=== PATIENT | female | born 1990 | race Caucasian/White ===

== ENCOUNTER 2017-01-22 09:33 | Inpatient (IN) | payer OTHER ==
[2017-01-21 11:38] VITALS: BMI 39.9
[2017-01-22] MEDS ORDERED: BUPIVACAINE HCL/PF 0.5% (5MG/ML) 10 ML VIAL ONE (15:30)
--- NOTE | 2017-01-22 16:43 | HP ---
History & Physical Update - History History: No Change - Physical Physical: No Change - Assessment Assessment: No Change - Plan Plan: No Change Currently as noted:: Morbid obesity- For robotic vertical sleeve gastrectomy, possible liver Bx
[2017-01-22] MEDS ORDERED: fentaNYL CITRATE 250 MCG/5 ML VIAL ONE (18:34)
[2017-01-22] MEDS ORDERED: PROPOFOL 20 ML ONE (18:34)
[2017-01-22] MEDS ORDERED: ROCURONIUM BROMIDE 50 MG/5 ML VIAL ONE (18:34)
[2017-01-22] MEDS ORDERED: MIDAZOLAM HCL 2 MG/2 ML SINGLE DOSE VIAL ONE (18:34)
[2017-01-22] MEDS ORDERED: ceFAZolin SODIUM 1 GM VIAL IVPB ONE (19:00)
[2017-01-22] MEDS ORDERED: ceFAZolin SODIUM 1 GM VIAL ONE (19:09)
[2017-01-22] MEDS ORDERED: DEXAMETHASONE SOD PHOSPHATE 4 MG/1 ML VIAL ONE (19:09)
[2017-01-22] MEDS ORDERED: SODIUM CHLORIDE 0.9% P/F 10 ML VIAL IJ ONE (19:09)
[2017-01-22] MEDS ORDERED: NEOSTIGMINE METHYLSULFATE 0.5 MG/ML - 10 ML MDV ONE (19:58)
[2017-01-22] MEDS ORDERED: GLYCOPYRROLATE 0.2 MG/1 ML VIAL ONE (19:58)
[2017-01-22] MEDS ORDERED: BUPIVACAINE HCL/PF 0.5% (5MG/ML) 10 ML VIAL NR ONE (20:39)
--- NOTE | 2017-01-22 20:54 | OP ---
Operative Note - Note: Operative Date: 01/22/17 Pre-Operative Diagnosis: Morbid obesity Operation: Robotic vertical sleeve gastrectomy. Robotic wedge liver biopsy. Upper endoscopy/EGD Post-Operative Diagnosis: Other (Morbid obesity, hepatomegaly) Surgeon: Mike Plaza Rn Oncology Research: Andrea Godoy Anesthesia: General Specimens Removed: Greater curvature of stomach. Wedge liver biopsy left lobe Estimated Blood Loss (mls): 30 Drains & Tubes with Location: 36 Fr Bougie Operative Report Dictated: Yes
[2017-01-22] MEDS ORDERED: HYDROmorphone HCL CARPU-JECT 1 MG/1 ML DISP.SYRIN IVPB PRN (20:55)
[2017-01-22] MEDS ORDERED: SODIUM CHLORIDE 1,000 ML IV SCH (21:00)
[2017-01-22] MEDS ORDERED: ONDANSETRON 4 MG/2 ML VIAL IVPUSH PRN (21:07)
[2017-01-22] MEDS ORDERED: PROMETHAZINE HCL 25 MG/1 ML VIAL IVPUSH PRN (21:07)
[2017-01-22] MEDS ORDERED: LACTATED RINGERS SOLUTION 1,000 ML IV SCH (21:15)
[2017-01-22] MEDS ORDERED: METOCLOPRAMIDE HCL INJECTION 10 MG/2 ML VIAL ONE (21:18)
[2017-01-22] MEDS ORDERED: ACETAMINOPHEN INJECTION 100 ML IVPB ONE (21:18)
[2017-01-22] MEDS ORDERED: HYDROmorphone HCL CARPU-JECT 2 MG/1 ML DISP.SYRIN ONE (21:18)
[2017-01-22] MEDS ORDERED: PROMETHAZINE HCL 25 MG/1 ML VIAL ONE ×2 (21:18→22:00)
[2017-01-22] MEDS: METOCLOPRAMIDE HCL INJECTION 10 MG/2 ML VIAL IVPUSH SCH (21:25)
[2017-01-22 21:29] LABS: MCHC 32.5 g/dl (32.0-36.0); MEAN CELL VOLUME 86.2 fl (80-96); RDW 13.6 % (11.6-15.6); WHITE BLOOD COUNT 20.3 K/mm3 (4.0-10.0)
[2017-01-22] MEDS: ACETAMINOPHEN 1000 MG/100 ML VIAL (NON FORMULARY) IVPB SCH (21:45)
[2017-01-22] MEDS ORDERED: FAMOTIDINE 20 MG/50 ML IVPB 50 ML IVPB SCH (22:00)
[2017-01-22] MEDS ORDERED: FAMOTIDINE/PF 20 MG/12 ML PUSH IVPUSH SCH (22:00)
[2017-01-22 22:02] LABS: ALBUMIN 3.6 g/dl (3.4-5.0); ALK PHOS 77 U/L (45-117); ANION GAP 9 (8-16); BILIRUBIN,TOTAL 0.7 mg/dL (0.2-1.0); CALCIUM 8.5 mg/dL (8.5-10.1); CO2 23 mmol/L (21-32); CREATININE 0.9 mg/dL (0.55-1.02); GLUCOSE,RANDOM 117 mg/dL (74-106); SGPT/ALT 48 U/L (12-78); TOT PROT 7.3 g/dl (6.4-8.2)
[2017-01-22 22:09] LABS: SGOT/AST 42 U/L (15-37)
[2017-01-22 22:27] LABS: PLATELET COMMENTS SLT PLT CLUMPING
[2017-01-22] MEDS: ONDANSETRON 4 MG/2 ML VIAL IVPUSH SCH (23:20)
[2017-01-22] MEDS: ENOXAPARIN NA (PORCINE) 40 MG/0.4 ML DISP.SYRIN SQ SCH (23:21)
[2017-01-22] MEDS: FAMOTIDINE IV 20 MG/12 ML VIAL IVPUSH SCH (23:34)
[2017-01-23] MEDS: ONDANSETRON 4 MG/2 ML VIAL IVPUSH SCH ×6 (02:33→21:22)
[2017-01-23] MEDS: HYDROmorphone HCL CARPU-JECT 2 MG/1 ML DISP.SYRIN IVPB PRN ×2 (02:46→12:58)
[2017-01-23] MEDS: METOCLOPRAMIDE HCL INJECTION 10 MG/2 ML VIAL IVPUSH SCH ×4 (04:14→21:25)
[2017-01-23] MEDS: ACETAMINOPHEN 1000 MG/100 ML VIAL (NON FORMULARY) IVPB SCH ×3 (04:15→15:17)
[2017-01-23 07:53] LABS: MEAN CELL VOLUME 84.9 fl (80-96); MEAN PLT VOLUME 9.5 fl (7.5-11.1); PLATELET COUNT 192 K/MM3 (134-434); RDW 13.4 % (11.6-15.6); WHITE BLOOD COUNT 9.1 K/mm3 (4.0-10.0)
[2017-01-23 08:23] LABS: ALBUMIN 3.4 g/dl (3.4-5.0); ANION GAP 12 (8-16); BILIRUBIN,TOTAL 0.9 mg/dL (0.2-1.0); CALCIUM 8.2 mg/dL (8.5-10.1); CO2 23 mmol/L (21-32); CREATININE 0.7 mg/dL (0.55-1.02); GLUCOSE,RANDOM 94 mg/dL (74-106); SGOT/AST 49 U/L (15-37); SGPT/ALT 55 U/L (12-78); TOT PROT 6.8 g/dl (6.4-8.2)
[2017-01-23 08:24] LABS: ALK PHOS 67 U/L (45-117)
[2017-01-23] MEDS ORDERED: PT OWN MED DRAWER 7, Y5N ONE ×2 (09:28→10:31)
[2017-01-23] MEDS: ENOXAPARIN NA (PORCINE) 40 MG/0.4 ML DISP.SYRIN SQ SCH ×2 (09:41→21:26)
[2017-01-23] MEDS: FAMOTIDINE IV 20 MG/12 ML VIAL IVPUSH SCH ×2 (09:50→22:25)
[2017-01-23] MEDS: LEVOTHYROXINE SODIUM 100 MCG VIAL IM SCH (09:55)
--- NOTE | 2017-01-23 10:40 | PN ---
Progress Note (short form) - Note Progress Note: POD #1 - s/p robotic gastric sleeve under GA. VSS. Pt. doing well, resting comfortably in bed. No complaints. No apparent anesthetic complications noted. Continue current care.
[2017-01-23] MEDS: SODIUM CHLORIDE 1,000 ML IV SCH (13:00)
[2017-01-23] MEDS ORDERED: oxyCODONE HCL 5 MG TABLET PO PRN (13:14)
[2017-01-23] MEDS ORDERED: ACETAMINOPHEN 325 MG TABLET (FP) PO PRN (13:14)
--- NOTE | 2017-01-23 18:30 | PN ---
Progress Note (short form) - Note Progress Note: POD 1 Pain controlled No nausea Vital Signs Period Temp Pulse Resp BP Sys/Cates Pulse Ox Last 24 Hr 98.2 F-99.3 F 62-114 20-26 113-147/64-83 96-99 Abd soft CBC, BMP 01/23/17 05:37 01/23/17 05:37 UGI- no leak/obstruction Clears Ambulate
--- NOTE | 2017-01-23 18:31 | DS ---
Physical Examination Vital Signs: Vital Signs Temperature 99.0 F 01/23/17 14:00 Pulse Rate 62 01/23/17 14:00 Respiratory Rate 20 01/23/17 14:00 Blood Pressure 134/75 01/23/17 14:00 O2 Sat by Pulse Oximetry (%) 96 01/23/17 10:00 Constitutional: Yes: Calm HENT: Yes: WNL Neck: Yes: Supple Cardiovascular: Yes: Regular Rate and Rhythm Respiratory: Yes: CTA Bilaterally Gastrointestinal: Yes: Soft Extremities: Yes: WNL Neurological: Yes: Alert, Oriented Labs: CBC, BMP 01/23/17 05:37 01/23/17 05:37 Discharge Summary Reason For Visit: MORBID (SEVERE) OBESITY DUE TO EXCESS CALORIES Current Active Problems Hepatomegaly (Acute) Morbid obesity due to excess calories (Acute) Procedures: Principal: Robotic sleeve gastrectomy, wedge liver biopsy, EGD Condition: Stable - Instructions Diet, Activity, Other Instructions: [address] [place] [address] Mike Plaza M.D. [address] [place] [address], [address] [facility] [place] [address] Robotic, Bariatric and General Surgery Postoperative Instructions for Bariatric Surgery Activity: Resume normal everyday activity as tolerated. You may walk and climb stairs without any limitation. We encourage you to walk as often as you can Do not lift anything more than 10 pounds for 8 weeks. At that time, you can return to full activity, including the gym, without limitation. Do not drive a motor vehicle while taking prescribes narcotic pain medication. Wound Care: If you have a bandage in place, leave it on for 3 days. At that time you may remove the outer bandage. If there are strips of tape on the skin after removing the outer bandage, leave them in place. They will fall off by themselves. Do not remove them. If there is clear glue on the skin after removing the outer bandage, leave it in place. Do not pick at it or peel it off. You may shower after taking the outer bandage off, 3 days after your surgery. If incisions become red, warm or open, please call the office. Diet: Continue a sugar-free, non-carbonated Clear liquid diet three times a day for the first week-Stage I diet. In addition, you should drink 8 ounces of water every hour. When drinking, sips should be slow and steady, not large and quick. After the first week, call the office to be advanced to the next dietary stage. Do not advance stages until instructed. Your diet will be advanced over the phone each week. Medications/Pain Management: You may resume previous medications unless told otherwise. The pills may be swallowed whole or broken if scored. You may take the prescribed narcotic pain medication as needed. If the narcotic medication is not needed for pain control, you may take Tylenol. Avoid all other pain medications including Advil, Ibuprofen, Motrin, Aspirin, Naprosyn, Aleve, Celebrex. You will receive Pepcid. Please take this twice a day as prescribed. Dizziness,Headaches/Gas Pain: Make sure you are getting enough fluids daily. Patients on diuretics or water pills may need medication adjusted. Some fluids such as broth or Gatorade may help. Gas pains are common in the first few weeks after surgery. At times they can be worse than surgical pain. Walking can help. You can also use Mylanta, Maalox, or Gas-X. Vomiting/Nausea: This may occur if you eat too fast, don't chew, or eat too much. Go back to fluids. If the vomiting or nausea persists, call the office. Constipation/Diarrhea: You may experience a change in bowel habits. Many things affect this, including a decrease in food intake, not enough fluid and taking pain medication. Some people experience diarrhea after the barium swallow in x-ray. If either persist, call the office. Follow up: Call the office at [phone] for an appointment 2 weeks after your surgical procedure. Disposition: HOME - Home Medications Comprehensive Discharge Medication List: Ambulatory Orders Ergocalciferol (Vitamin D2) [Vitamin D2] 50,000 unit PO WEEKLY 01/21/17 Levothyroxine [Synthroid -] 150 mcg PO UTDICT 01/21/17 Levothyroxine [Synthroid -] 175 mcg PO UTDICT 01/21/17 Famotidine [Pepcid] 20 mg PO BID #60 tablet 01/22/17 Oxycodone HCl/Acetaminophen [Percocet 5-325 mg Tablet] 1 - 2 tab PO Q6H #28 tab MDD 4 01/22/17
[2017-01-24] MEDS: ONDANSETRON 4 MG/2 ML VIAL IVPUSH SCH ×4 (01:12→15:09)
[2017-01-24] MEDS: METOCLOPRAMIDE HCL INJECTION 10 MG/2 ML VIAL IVPUSH SCH ×3 (02:23→15:09)
[2017-01-24] MEDS ORDERED: PT OWN MED DRAWER 7, Y5N ONE (08:53)
[2017-01-24] MEDS: ENOXAPARIN NA (PORCINE) 40 MG/0.4 ML DISP.SYRIN SQ SCH (09:28)
[2017-01-24] MEDS: LEVOTHYROXINE SODIUM 100 MCG VIAL IM SCH ×2 (09:28→10:42)
--- NOTE | 2017-01-24 10:35 | SPEC ---
DATE OF OPERATION: 01/22/2017 SURGEON: Angie Plaza MD KISS MIXER: Andrea Godoy MD PREOPERATIVE DIAGNOSIS: Morbid obesity. POSTOPERATIVE DIAGNOSIS: Morbid obesity, hepatomegaly. PROCEDURE: Robotic vertical sleeve gastrectomy, robotic wedge liver biopsy, and upper endoscopy/esophagogastroduodenoscopy. SPECIMEN: Greater curvature of the stomach and left lobe of the liver wedge liver biopsy. ESTIMATED BLOOD LOSS: 30 mL. DRAIN: None. ANESTHESIA: GET. Bougie 36-Persian. REASON FOR PROCEDURE: This is a 26-year-old female who presents to the office for evaluation for weight loss. She decided to proceed with a robotic, possible open, vertical sleeve gastrectomy, possible wedge liver biopsy, possible upper endoscopy. DESCRIPTION OF PROCEDURE: The patient was placed supine on the operating room table. The patient underwent general endotracheal intubation. A Scott catheter was inserted by the nursing staff. The arms were brought out at 90 degrees and secured. A foot board was placed and the legs were secured laterally with padding. The abdomen was prepped and draped in the usual sterile fashion. A time-out was performed. An incision was made superior and to the left of the umbilicus. A Veress needle was inserted. Pneumoperitoneum was established. Subsequently the Veress needle was removed. An 8-mm robotic trocar was placed under direct visualization with the laparoscope. Inspection of the abdominal cavity was performed. An 8-mm trocar was then placed in the left abdominal wall approximately 6 to 7 cm to the left of the initial trocar. An 8-mm robotic trocar was then placed in the left abdominal wall approximately 6 to 7 cm to the left of the initial trocar. A 12-mm robotic trocar was then placed in the right abdominal wall approximately 6 to 7 cm to the right of the initial trocar and an 8-mm robotic trocar placed approximately 6 to 7 cm lateral to the 12-mm trocar. A stab wound was made in the subxiphoid area and a Mary clamp inserted and removed to dilate the tract. A Ollie liver retractor was inserted. The post was secured at the bedside by the nursing staff. The patient was placed in steep reverse Trendelenburg position and the Ollie liver retractor was used to secure the liver towards the anterior abdominal wall. The robot was brought over the field and docked. Dissection was performed at the console. The pylorus was identified and 6 cm proximal to it the lesser sac was entered using the vessel sealer. From this point cephalad all lateral attachments to the greater curvature of the stomach including the short gastric vessels were ligated using the vessel sealer towards the gastrosplenic and gastrophrenic ligaments. Once this was done in its entirety, all tubes within the nasal or oropharyngeal cavity including a temperature probe was confirmed to be removed by Anesthesia. The bougie was then inserted by Anesthesia. Transection of the stomach was then begun staying adjacent to the bougie, but away from the angularis. Transection of the stomach was performed near the portion of the stomach where the lesser sac was entered. Two robotic green krishna were used at this location. Robotic blue krishna were then used for the remainder of the transection until the greater curvature of the stomach was fully transected. Again this was done staying close to the bougie. Care was taken to stay away from the angle of His cephalad. The staple line was then inspected. Hemostasis was identified. A leak test was then performed. The stomach was clamped distally to the staple line. Irrigation solution was placed in the left upper quadrant and air insufflated by Anesthesia into the sleeve. No leaks were identified and no obstruction was identified. This was done throughout the staple line. At this point, the irrigation solution was suctioned and again hemostasis noted. A wedge liver biopsy was then performed. A portion of the left lobe of the liver was identified and an edge of it grasped. Using electrocautery a wedge of this portion of the liver was excised. The specimen was removed from the abdominal cavity and sent off the field. Hemostasis of the biopsy site as attained using electrocautery. The robotic instruments were then removed. The robot was undocked from the operative field. The 12-mm robotic trocar was removed and the greater curvature specimen removed from this site using a sponge stick camacho. The specimen was inspected and the Veress needle inserted. The specimen insufflated adequately and no leak was identified. The staple line was noted to be straight and intact. A Julio-Pallavi device was then used to close the fascia with a 0 Vicryl suture at this site. The liver retractor was removed under direct visualization. Pneumoperitoneum was desufflated and the fascial suture was secured. In addition, intraoperatively to further evaluate for leak and/or obstruction, upper endoscopy was performed. The entirety of the esophagus, GE junction, and gastric pouch was inspected along with a staple line. No leak and no evidence of obstruction was noted. The entire staple line was noted to be intact. The stomach was suctioned and the endoscope removed. Hemostasis was noted at all incision sites and Marcaine was injected at all incision sites. All incision sites were closed using 4-0 Biosyn. Sterile dressings were applied. The patient tolerated the procedure well and was transferred to the recovery room in stable condition with a Scott catheter intact. The patient was transferred to telemetry for further monitoring. ANGIE PLAZA M.D. [id number]
[2017-01-24] MEDS ORDERED: LEVOTHYROXINE NA 150 MCG TABLET PO SCH (12:45)
[2017-01-24] MEDS ORDERED: LEVOTHYROXINE NA 75 MCG TABLET (FP) PO SCH (12:45)
[2017-01-24 12:51] VITALS: BP 147/75; PULSE 81; TEMP 98.7
[2017-01-24] MEDS: FAMOTIDINE IV 20 MG/12 ML VIAL IVPUSH SCH (13:17)
[2017-01-24] MEDS: SODIUM CHLORIDE 1,000 ML IV SCH (13:20)
--- NOTE | 2017-01-26 16:45 | PATH ---
Surgical Pathology Report Patient Name: STEPAN GARZA Med. Rec. #: [id number] /Age/Gender: 1990 (Age: 26) / F Account: [id number] Location: [facility] MED/SURG Taken: 01/22/2017 Received: 01/23/2017 Reported: 01/26/2017 Physicians: Mike Plaza M.D. Specimen(s) Received A: GREATER CURVATURE OF STOMACH B: WEDGE LIVER BIOPSY Clinical History Morbid obesity due to excess calories Final Diagnosis A. STOMACH, GREATER CURVATURE, ROBOTIC VERTICAL SLEEVE GASTRECTOMY: PORTION OF STOMACH WITH MODERATE TO SEVERE CHRONIC GASTRITIS. DIFF-QUIK SPECIAL STAIN IS POSITIVE FOR HELICOBACTER-LIKE ORGANISMS. B. LIVER, BIOPSY: LIVER PARENCHYMA WITH MILD STEATOSIS (<5%). NO INCREASE IN IRON OR FIBROSIS IN PERFORMED SPECIAL STAINS (IRON AND TRICHROME). Electronically Signed Abby Bray M.D. Gross Description A. Received in formalin, labeled "greater curvature stomach," is a 214 gram, 20.5 x 4.0 x 3.8 cm. portion of stomach with a stapled margin of resection. The serosa is galeas-leary with minimal attached fat. The mucosa is dark red with focally flattened folds. No mucosal masses are identified. C++ Professor sections are submitted in one cassette. B. Received in formalin labeled "liver biopsy," is a 1.8 x 1.2 x 0.5 cm galeas, irregular portion of soft tissue. The specimen is bisected and entirely submitted in one cassette. 01/23/201701/23/2017
== END 2017-01-24 16:18 | disposition home or self-care (01) | DRG 621 ==
LOC: JSAMEDAYSX 13:41 → J4W 22:54 → J8W 01-23 17:50
PROVIDERS: ADMIT Surgery; ATTEND Surgery
PROC: 8E0W4CZ Robotic Assisted Procedure of Trunk Region, Percutaneous Endoscopic Approach (ICD-10-PCS; 2017-01-22)
PROC: 0DB64Z3 Excision of Stomach, Percutaneous Endoscopic Approach, Vertical (ICD-10-PCS; principal; 2017-01-22 16:00)
PROC: 0FB24ZX Excision of Left Lobe Liver, Percutaneous Endoscopic Approach, Diagnostic (ICD-10-PCS; 2017-01-22 16:00)
PROC: 0DJ08ZZ Inspection of Upper Intestinal Tract, Via Natural or Artificial Opening Endoscopic (ICD-10-PCS; 2017-01-22 16:00)
DX: E66.01 Morbid (severe) obesity due to excess calories (principal); Z68.41 Body mass index [BMI] 40.0-44.9, adult; R16.0 Hepatomegaly, not elsewhere classified
CPT/HCPCS: 36415; 74241-TC; 80053; 84703; 85027; 86850; 86900; 86901; 88305-TC; 88307-TC; 94010; 94760

== ENCOUNTER 2017-02-18 15:37 | Emergency (ER) | payer OTHER ==
--- NOTE | 2017-02-18 15:55 | PDOC ---
Rapid Medical Evaluation Time Seen by Provider: 02/18/17 15:53 Medical Evaluation: Allergies Allergy/AdvReac Type Severity Reaction Status Date / Time latex Allergy "RASH,HIVES Verified 01/22/17 14:18 " 02/18/17 15:53 I have performed a brief in-person evaluation of this patient. The patient presents with a chief complaint of: Bariatric surgery w/ Dr. Plaza on 01/22, "not feeling well, diarrhea since yesterday", told to come in for evaluation of dehydration, feeling "very weak", skin feels dry Pertinent physical exam findings: well appearing I have ordered the following: labs The patient will proceed to the ED for further evaluation. Discharge Disposition - Diagnosis Weakness - Referrals - Patient Instructions - Post Discharge Activity
[2017-02-18 15:58] VITALS: BP 115/77; PULSE 88; TEMP 98.4; BMI 35.5
[2017-02-18 16:53] LABS: BASO % 0.3 % (0-2.0); HEMATOCRIT 45.2 % (32.4-45.2); HEMOGLOBIN 14.9 GM/dL (10.7-15.3); LYMPH % 40.6 % (8-40); MCHC 32.9 g/dl (32.0-36.0); MEAN CELL VOLUME 84.9 fl (80-96); MEAN PLT VOLUME 11.3 fl (7.5-11.1); MONO % 11.1 % (3.8-10.2); PLATELET COUNT 121 K/MM3 (134-434); RBC 5.33 M/mm3 (3.60-5.2); RDW 13.6 % (11.6-15.6); WHITE BLOOD COUNT 6.2 K/mm3 (4.0-10.0)
[2017-02-18 17:25] LABS: ALBUMIN 3.9 g/dl (3.4-5.0); ANION GAP 9 (8-16); BILIRUBIN,TOTAL 1.1 mg/dL (0.2-1.0); BLOOD UREA NITROGEN 9 mg/dL (7-18); CHLORIDE 105 mmol/L (98-107); CO2 24 mmol/L (21-32); CREATININE 0.8 mg/dL (0.55-1.02); GLUCOSE,RANDOM 73 mg/dL (74-106); POTASSIUM 3.7 mmol/L (3.5-5.1); SGOT/AST 23 U/L (15-37); SGPT/ALT 43 U/L (12-78); SODIUM 138 mmol/L (136-145); TOT PROT 7.6 g/dl (6.4-8.2)
[2017-02-18 17:26] LABS: ALK PHOS 78 U/L (45-117)
--- NOTE | 2017-02-18 19:04 | PDOC ---
Attending Attestation - Resident Resident Name: Lupillo Brownlee - Medical Decision Making 02/18/17 19:03 I, Dr. Karo Garcia, DO, attest that this document has been prepared under my direction and personally reviewed by me in its entirety. I further attest, that it accurately reflects all work, treatment, procedures and medical decision -making performed by me. 02/18/17 19:40 a/p: 26yo female with diarrhea and body aches since yesterday -nonbloody diarrhea -will check labs -ivf hydration -flu swab -case discussed with dr. plaza given recent gastric sleeve sx -will monitor and reassess 02/18/17 22:25 pt feeling much better UTI on labs Will start keflex will send Rx to [facility] discussed all lab findings, pt stable for d/c to home flu swab negative <Karo Garcia - Last Filed: 02/18/17 22:25> - HPI HPI: 02/18/17 23:35 Patient is a 26 year old female with a significant past medical history of who presents to the ED with complaints of diarrhea that begin yesterday afternoon. Patient reports experiencing sudden onset of watery stool while at home, but denies any presence of blood. She reports experiencing chills last night as well as general body aches. Patient states she experiencing more episodes of diarrhea and lightheadedness today prompting her to come into the ED for evaluation. She reports getting a Gastric sleeve on January 22, and is currently on a Pureed diet. 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 Denies chest pain, SOB. Denies nausea, vomiting. Denies dysuria, hematuria. Denies out of state travel. Denies any other symptoms. Allergies: Latex Social history: No smoking. No alcohol. No illicit drugs. Surgical history: cholecystectomy, appendectomy, and bariatric surgery PMD: Not on staff. GI: Dr. Plaza - Physicial Exam PE: 02/18/17 23:35 GENERAL: +Non toxic. Awake, alert, and fully oriented, in no acute distress HEAD: No signs of trauma EYES: PERRLA, EOMI, sclera anicteric, conjunctiva clear ENT: Auricles normal inspection, hearing grossly normal, nares patent, oropharynx clear without exudates. Moist mucosa NECK: Normal ROM, supple, no lymphadenopathy, JVD, or masses LUNGS: Breath sounds equal, clear to auscultation bilaterally. No wheezes, and no crackles HEART: Regular rate and rhythm, normal S1 and S2, no murmurs, rubs or gallops ABDOMEN: +Incisions well healed. Soft, nontender, normoactive bowel sounds. No guarding, no rebound. No masses EXTREMITIES: Normal range of motion, no edema. No clubbing or cyanosis. No cords, erythema, or tenderness NEUROLOGICAL: Cranial nerves II through XII grossly intact. Normal speech, normal gait SKIN: Warm, Dry, normal turgor, no rashes or lesions noted. - Medical Decision Making 02/18/17 23:35 Documentation prepared by Joel Estrada, acting as medical pathologist for Karo Garcia DO, MD/. <Joel Estrada - Last Filed: 02/18/17 23:35> Discharge Disposition - Discharge Dispostion Last Admission D/C Date: 01/24/17 Admit: No <Karo Garcia - Last Filed: 02/18/17 22:25> <Joel Estrada - Last Filed: 02/18/17 23:35> - Diagnosis UTI (urinary tract infection) Diarrhea Qualifiers: Diarrhea type: unspecified type Qualified Code(s): R19.7 - Diarrhea, unspecified - Discharge Dispostion Disposition: HOME Condition at time of disposition: Stable - Prescriptions Prescriptions: Cephalexin Monohydrate [Keflex -] 500 mg PO BID #14 capsule - Referrals Referrals: STAFF,NOT ON [Primary Care Provider] - Mike Plaza MD [Staff Physician] - - Patient Instructions Printed Discharge Instructions: DI for Urinary Tract Infection (UTI), DI for Diarrhea and Traveler's Diarrhea -- Adult Additional Instructions: Please take all meds as prescribed. Please follow up with your PMD and your surgeon. Please return to the ED with any further concerns. - Post Discharge Activity
--- NOTE | 2017-02-18 19:06 | PDOC ---
History of Present Illness - General Chief Complaint: Weakness Stated Complaint: DEHYDRATED Time Seen by Provider: 02/18/17 15:53 - History of Present Illness Initial Comments: 02/18/17 18:59 Ms. England is a 26 yo female w/ pmh of cholecystectomy, appendectomy, and bariatric surgery January 22 who presents c/o a 1 day history of diarrhea all yesterday and today. She reports she was previously feeling fine and having no problems adhering to her bariatric diet but that yesterday her diarrhea began. She had chills overnight and also complains of body-aches all over. She has had the flu shot this year. The patient denies chest pain, shortness of breath, headache and dizziness. Denies fever, nausea, vomit, and constipation. Denies dysuria, frequency, urgency and hematuria. Allergies: Latex Past History - Past Medical History Allergies/Adverse Reactions: Allergies Allergy/AdvReac Type Severity Reaction Status Date / Time latex Allergy "RASH,HIVES Verified 01/22/17 14:18 " Home Medications: Ambulatory Orders Ergocalciferol (Vitamin D2) [Vitamin D2] 50,000 unit PO WEEKLY 01/21/17 Levothyroxine [Synthroid -] 150 mcg PO UTDICT 01/21/17 Levothyroxine [Synthroid -] 175 mcg PO UTDICT 01/21/17 Famotidine [Pepcid] 20 mg PO BID #60 tablet 01/22/17 Anemia: No Asthma: No Cancer: No Cardiac Disorders: No CVA: No COPD: No CHF: No Dementia: No Diabetes: No GI Disorders: No Disorders: No HTN: No Hypercholesterolemia: No Liver Disease: No Seizures: No Thyroid Disease: Yes (HYPOTHYROIDISM) - Surgical History Abdominal Surgery: Yes (Gastric Sleeve) Appendectomy: Yes Cholecystectomy: Yes - Suicide/Smoking/Psychosocial Hx Smoking History: Never smoked Have you smoked in the past 12 months: No Information on smoking cessation initiated: No Hx Alcohol Use: No Drug/Substance Use Hx: No Substance Use Type: None Hx Substance Use Treatment: No Review of Systems - Review of Systems Comments:: 02/18/17 19:08 GENERAL/CONSTITUTIONAL: +Chills overnight. No weakness. HEAD, EYES, EARS, NOSE AND THROAT: No change in vision. No ear pain or discharge. No sore throat. CARDIOVASCULAR: No chest pain or shortness of breath RESPIRATORY: No cough, wheezing, or hemoptysis. GASTROINTESTINAL: No nausea, vomiting, diarrhea or constipation. GENITOURINARY: No dysuria, frequency, or change in urination. MUSCULOSKELETAL: +Body aches "from head to toe" SKIN: No rash NEUROLOGIC: No headache, vertigo, loss of consciousness, or change in strength/ sensation. ENDOCRINE: No increased thirst. No abnormal weight change HEMATOLOGIC/LYMPHATIC: No anemia, easy bleeding, or history of blood clots. ALLERGIC/IMMUNOLOGIC: No hives or skin allergy. *Physical Exam - Vital Signs Last Vital Signs Temp Pulse Resp BP Pulse Ox 98.4 F 88 16 115/77 100 02/18/17 15:54 02/18/17 15:54 02/18/17 15:54 02/18/17 15:54 02/18/17 15:54 - Physical Exam Comments: 02/18/17 19:09 GENERAL: Awake, alert, and fully oriented, in no acute distress HEAD: No signs of trauma, normocephalic, atraumatic EYES: PERRLA, EOMI, sclera anicteric, conjunctiva clear ENT: Auricles normal inspection, hearing grossly normal, nares patent, oropharynx clear without exudates. Moist mucosa NECK: Normal ROM, supple, no lymphadenopathy, JVD, or masses LUNGS: No distress, speaks full sentences, clear to auscultation bilaterally HEART: Regular rate and rhythm, normal S1 and S2, no murmurs, rubs or gallops, peripheral pulses normal and equal bilaterally. ABDOMEN: Soft, nontender, normoactive bowel sounds. No guarding, no rebound. No masses EXTREMITIES: Normal inspection, Normal range of motion, no edema. No clubbing or cyanosis. NEUROLOGICAL: Cranial nerves II through XII grossly intact. Normal speech, normal gait, no focal sensorimotor deficits SKIN: Warm, Dry, normal turgor, no rashes or lesions noted. ED Treatment Course - LABORATORY CBC & Chemistry Diagram: 02/18/17 16:40 02/18/17 16:32 - ADDITIONAL ORDERS Additional order review: Laboratory Results 02/18/17 02/18/17 16:40 16:32 Sodium 138 Potassium 3.7 Chloride 105 Carbon Dioxide 24 Anion Gap 9 BUN 9 Creatinine 0.8 Creat Clearance w eGFR > 60 Random Glucose 73 L D Calcium 9.0 Total Bilirubin 1.1 H D AST 23 D ALT 43 D Alkaline Phosphatase 78 Total Protein 7.6 Albumin 3.9 Urine HCG, Qual Negative 02/18/17 16:40 RBC 5.33 H MCV 84.9 MCHC 32.9 RDW 13.6 MPV 11.3 H D Neutrophils % 46.0 Lymphocytes % 40.6 H Monocytes % 11.1 H Eosinophils % 2.0 Basophils % 0.3 Medical Decision Making - Medical Decision Making 02/18/17 21:43 Ms. England is a 26 yo female w/ pmh as described who presents for evaluation of diarrhea x2 days. Patient endorses flu-like symptoms. Influenza swab sent for analysis. Patient discussed with GI surgeon who agrees with plan to hydrate and r/o flu. Influenza swab was negative. Patient currently pending UA. Patient signed out to Dr. Garcia for further care. *DC/Admit/Observation/Transfer Diagnosis at time of Disposition: Diarrhea Qualifiers: Diarrhea type: unspecified type Qualified Code(s): R19.7 - Diarrhea, unspecified - Referrals Referrals: STAFF,NOT ON [Primary Care Provider] - - Patient Instructions - Post Discharge Activity
[2017-02-18 21:55] LABS: URINE APPEARANCE CLOUDY; URINE BLOOD 2+ (NEGATIVE); URINE COLOR AMBER; URINE GLUCOSE (UA) NEGATIVE (NEGATIVE); URINE KETONE 2+ (NEGATIVE); URINE NITRITE NEGATIVE (NEGATIVE); URINE UROBILINOGEN 4.0 E.U/dl mg/dL (0.2-1.0)
[2017-02-18 21:59] LABS: URINE LEUK ESTERASE 2+ (NEGATIVE); URINE PROTEIN 2+ (NEGATIVE)
[2017-02-18 22:00] LABS: EPI CELLS MANY /HPF (FEW); URINE BACTERIA RARE /hpf (NONE SEEN); URINE MUCUS MANY
[2017-02-18] MEDS ORDERED: CEPHALEXIN MONOHYDRATE 500 MG CAPSULE (UD) PO ONE (22:18)
[2017-02-18] MEDS ORDERED: CEPHALEXIN MONOHYDRATE 250 MG CAPSULE (FP) ONE (22:21)
== END 2017-02-18 23:31 | disposition home or self-care (01) ==
LOC: JER 15:37
DX: R19.7 Diarrhea, unspecified (principal); E03.9 Hypothyroidism, unspecified
CPT/HCPCS: 36415; 80053; 81003; 81015; 84703; 85025; 87804; 99282-25